=== PATIENT | female | born 1995 | race Caucasian/White ===

== ENCOUNTER 2020-02-14 10:51 | Emergency (ER) | payer SELFPAY ==
--- NOTE | ~2020-02-14 | XR_ITS ---
EXAMINATION: XR chest 1V portable DATE: 02/14/2020 11:38 INDICATION: Generalized chest pain radiating into the left arm. TECHNIQUE: frontal view of the chest was obtained. COMPARISON: None FINDINGS: The lungs are clear with no focal airspace opacities, pulmonary edema, pleural effusion or pneumothor ax. The cardiomediastinal silhouette is normal. Visualized bones and soft tissues are unremarkable. IMPRESSION: 1. No acute cardiopulmonary disease. Reviewed, dictated and finalized at location A.
[2020-02-14 10:54] VITALS: BP 119/74; PULSE 117; RESP 14; TEMP 37.2; O2SAT 98
--- NOTE | 2020-02-14 10:54 | ECG_ITS ---
Measurements Intervals [place] Rate: 105 P: 60 SD: 172 QRS: 66 QRSD: 81 T: 53 QT: 321 QTc: 425 Interpretive Statements SINUS TACHYCARDIA ST ELEVATION IN DIFFUSE LEADS- PROBABLY EARLY REPOLARIZATION ABNORMAL ECG Electronically Signed On 02-14-2020 12:15:30 CDT by Pito Braden D.O.
[2020-02-14 11:00] VITALS: PULSE 104
[2020-02-14 11:30] LABS: Basophils Absolute Auto 0.02 K/mm3 (0.00-0.10); Basophils Percent Auto 0.2 % (0.0-1.0); Eosinophils Absolute Auto 0.09 K/mm3 (0.02-0.50); Eosinophils Percent Auto 0.9 % (1.0-6.0); Hematocrit 39.7 % (35.0-49.0); Hemoglobin 13.3 g/dL (12.0-15.0); Immature Granulocyte Absolute 0.03 K/mm3 (0.00-0.00); Immature Granulocyte Percent A 0.3 % (0.0-0.0); Immature Platelet Fraction Pct 3.3 % (1.0-7.0); Lymphocytes Absolute Auto 1.63 K/mm3 (1.10-4.50); Lymphocytes Percent Auto 17.1 % (18.0-42.0); Mean Corpuscular HGB Conc 33.5 g/dL (32.0-36.0); Mean Corpuscular Hemoglobin 30.9 pg (27.0-31.0); Mean Corpuscular Volume 92.3 fL (78.0-102.0); Mean Platelet Volume 10.4 fl (9.2-11.8); Monocytes Absolute Auto 1.23 K/mm3 (0.10-0.90); Monocytes Percent Auto 12.9 % (2.0-11.0); Neutrophils Absolute Auto 6.5 K/mm3 (1.7-7.2); Neutrophils Percent Auto 68.6 % (50.0-70.0); Platelet Count Result 145 K/mm3 (150-420); Red Cell Distribution Width 12.1 % (11.6-14.4); White Blood Count 9.5 K/mm3 (4.8-10.8)
[2020-02-14 11:39] LABS: Prothrombin Time 10.6 Seconds (9.64-11.0)
[2020-02-14 11:45] LABS: Amphetamine Screen Urine Positive (Negative); Barbiturate Screen Urine Negative (Negative); Benzodiazepines Screen Urine Negative (Negative); Cannabinoid Screen Urine Negative (Negative); Cocaine Screen Urine Negative (Negative); Methadone Screen Urine Negative (Negative); Opiate Screen Urine Negative (Negative); Phencyclidine Screen Urine Negative (Negative)
--- NOTE | 2020-02-14 11:45 | PC.NURSE ---
Wrong nurse signed in to charting system. JUSTINE Brandon [place] during entire patient ER visit.
[2020-02-14 11:46] LABS: Alanine Aminotransferase 20 U/L (14-59); Albumin Level 3.8 g/dL (3.4-5.0); Alkaline Phosphatase 91 U/L (46-116); Anion Gap 10.6 mmol/L (7-16); Aspartate Amino Transferase 24 U/L (15-37); Bilirubin,Total 0.9 mg/dL (0.00-1.00); Blood Urea Nitrogen 18 mg/dL (7-18); Calcium 8.7 mg/dL (8.5-10.1); Carbon Dioxide 26 mmol/L (21-32); Chloride 103 mmol/L (98-108); Estimated CRCL calculation 99 ml/min; Estimated Glomerular Filt Rate > 60; Glucose 98 mg/dL (70-99); Osmolality Calculated 283 mOsm/kg (285-295); Potassium 3.6 mmol/L (3.5-5.1); Sodium 136 mmol/L (136-145); Total Protein 7.5 g/dL (6.4-8.2)
[2020-02-14 11:48] LABS: Troponin I < 0.02 ng/mL (0.00-0.056)
[2020-02-14 11:50] LABS: BNP 25.6 pg/mL (0-100)
[2020-02-14] MEDS: LORazepam 0.5 MG TABLET 1 MG PO (12:08)
--- NOTE | 2020-02-14 12:35 | ED.GENADULT ---
HPI - General Adult General Chief complaint: Chest Pain Stated complaint: Chest pain History of Present Illness HPI narrative: Gabby is a 24F with a PMH of methamphetamine use that presented to the ER ambulating with CP. She started having an intense pain that started last night. It started in her left arm and moved up into her shoulder then her neck and chest. She had been clean for about 10 months but smoked methamphetamine 2 nights ago. She admits some SOB but no N/V, lightheadedness or syncope. Related Data Home Medications Medication Instructions Recorded Confirmed No Home Medications 02/14/20 02/14/20 Allergies Allergy/AdvReac Type Severity Reaction Status Date / Time No Known Allergies Allergy Verified 02/14/20 11:03 Review of Systems Constitutional: Constitutional: Reports no additional constitutional complaints Eyes: Eyes: Reports no additional eye complaints ENT: Reports system reviewed and no additional complaints, except as documented Cardiovascular: Cardiovascular: Reports as per HPI Respiratory: Respiratory: Reports as per HPI Gastrointestinal: Gastrointestinal: Reports no additional gastrointestinal complaints Genitourinary: Genitourinary: Reports no additional female genitourinary complaints Musculoskeletal: Musculoskeletal: Reports no additional musculoskeletal complaints Integumentary/Breasts: Skin/Breast: Reports system reviewed and no additional complaints, except as docu Neurologic: Reports system reviewed and no additional complaints, except as documented Psychiatric: Psychiatric: Reports anxiety Comments: No SI/HI or visual/auditory hallucinations Endocrine: Endocrine: Reports no additional endocrine complaints Hematologic/Lymphatic: Hematologic/Lymphatic: Reports no additional hematologic/lymphatic complaints Allergic/Immunologic: Allergic/Immunologic: Reports no additional allergic/immunologic complaints Exam Const: General: no acute distress and alert Orientation/consciousness: patient oriented x3 Limitations: No altered mental status HENMT: Other: normocephalic, atraumatic Eyes: Conjunctivae: conjunctivae normal Pupils: Equal, round and reactive pupils present Neck: Neck: normal visual inspection Chest: Chest palpation & inspection: normal inspection of the chest Resp: Effort & Inspection: normal respiratory effort, not labored and not tachypneic Auscultation: clear to auscultation bilaterally Cardio: Rate: tachycardic Rhythm: regular rhythm Heart sounds: no murmurs GI: GI Palp: Yes Soft to palpation, No Tenderness to palpation present (GI) and No Guarding due to palpation present (GI) Skin: General skin exam: normal color Rashes: no rashes Neuro: General: patient oriented x3 and moves all extremities Extrem: General: normal to inspection Psych: Mental Status: mental status grossly normal Course Course Emergency Course: Gabby was seen and evaluated. Ordered EKG, CXR and labs as below. She was given 1mg of ativan PO. EKG showed sinus tachycardia with a rate of 105, normal axis and no ST elevation/depression. EXAMINATION: XR chest 1V portable DATE: 02/14/2020 11:38 INDICATION: Generalized chest pain radiating into the left arm. TECHNIQUE: frontal view of the chest was obtained. COMPARISON: None FINDINGS: The lungs are clear with no focal airspace opacities, pulmonary edema, pleural effusion or pneumothorax. The cardiomediastinal silhouette is normal. Visualized bones and soft tissues are unremarkable. IMPRESSION: 1. No acute cardiopulmonary disease. Lab work showed a UDS positive for amphetamines but was otherwise largely unremarkable. She was feeling better with less chest pain and easier breathing after the ativan. Troponin was repeated at 3 hours and was also negative. Vital Signs Vital signs: Vital Signs Temperature 98.9 F 02/14/20 10:54 Pulse Rate 117 H 02/14/20 10:54 Respiratory Rate 14 02/14/20 10:54 Blood Pressure 119/
[2020-02-14 14:38] LABS: Troponin I < 0.02 ng/mL (0.00-0.056)
[2020-02-14 14:53] VITALS: BP 97/55; PULSE 96; RESP 13; O2SAT 100
== END 2020-02-14 14:58 | disposition home or self-care (01) ==
PROVIDERS: Emergency Provider Family Medicine; PCP Physician Assistant
DX: F15.129 Other stimulant abuse with intoxication, unspecified (principal)
CPT/HCPCS: 36415; 71045; 80053; 80307; 83880; 84484; 85025; 85055; 85610; 93005; 99284; A9270